=== PATIENT | male | born 1955 | race African-American/Black ===

== ENCOUNTER 2021-12-22 17:26 | Emergency (ER) | payer OTHER ==
[~2021-12-22] VITALS: Ht 175.3 cm; Wt 68.0 kg
[2021-12-22 20:45] VITALS: BP 143/87
[2021-12-22] MEDS ORDERED: KETOROLAC 60MG/2ML VIAL IM ONE (20:45)
[2021-12-22] MEDS ORDERED: HYDROCODONE/ACETAMINOPHEN 5/325MG TABLET PO ONE (20:45)
[2021-12-23] MEDS ORDERED: IBUP-2029 MT (00:41)
[2021-12-23] MEDS ORDERED: CYCL10TA21 MT (00:41)
[2021-12-23] MEDS ORDERED: ACET-3163 MT (00:41)
== END 2021-12-23 01:31 | disposition home or self-care (01) ==
LOC: ER 17:26
DX: M54.59 Other low back pain (principal); R10.32 Left lower quadrant pain; I11.0 Hypertensive heart disease with heart failure; I50.9 Heart failure, unspecified
CPT/HCPCS: 74176; 96372; 99284; J1885

== ENCOUNTER 2021-12-24 14:32 | Emergency (ER) | payer OTHER ==
[~2021-12-24] VITALS: Ht 170.2 cm; Wt 61.0 kg
[~2021-12-24 14:32] MED LIST: ACET-3163 MT; CYCL10TA21 MT; IBUP-2029 MT
[2021-12-24] MEDS ORDERED: CYCLOBENZAPRINE 10MG TABLET PO ONE (15:00)
[2021-12-24 15:36] LABS: BASOPHILS % 1.4 % (0.0-2.0); EOSINOPHILS % 1.9 % (0.0-5.0); HEMATOCRIT. 41.4 % (42.0-52.0); HEMOGLOBIN. 14.1 g/dL (14.0-18.0); LYMPHOCYTES % 32.8 % (20.0-50.0); MEAN PLATELET VOLUME 8.4 fl (7.4-10.4); MONOCYTES % 11.4 % (2.0-8.0); NEUTROPHILS % 52.5 % (40.0-76.0); PLATELET 303 x1000/uL (130-400); RED CELL DISTRIBUTION WIDTH 13.9 % (11.6-14.6)
[2021-12-24 15:47] LABS: CHLORIDE 107 mEq/L (98-107)
[2021-12-24 16:06] VITALS: BP 135/87
[2021-12-24] MEDS ORDERED: FUROSEMIDE 20MG TABLET PO ONE (16:30)
== END 2021-12-24 16:49 | disposition home or self-care (01) ==
LOC: ER 14:32
DX: I11.0 Hypertensive heart disease with heart failure (principal); I50.9 Heart failure, unspecified; M54.50 Low back pain, unspecified; Z91.14 Patient's other noncompliance with medication regimen
CPT/HCPCS: 36415; 71045; 80053; 83880; 84484; 85025; 93005; 99285

== ENCOUNTER 2022-03-05 17:14 | Emergency (ER) | payer OTHER ==
[~2022-03-05] VITALS: Ht 170.2 cm; Wt 82.0 kg
[2022-03-05 17:15] VITALS: BP 144/73
[2022-03-05] MEDS ORDERED: FUROSEMIDE 40MG/4ML VIAL IV ONE (17:45)
[2022-03-05] MEDS ORDERED: NITROGLYCERIN 0.4MG TABLET SL SL PRN (17:45)
[2022-03-05 18:54] LABS: BASOPHILS % 1.5 % (0.0-2.0); EOSINOPHILS % 1.4 % (0.0-5.0); HEMATOCRIT. 41.3 % (42.0-52.0); HEMOGLOBIN. 13.9 g/dL (14.0-18.0); LYMPHOCYTES % 20.4 % (20.0-50.0); MEAN CORPUSCULAR HEMOGLOBIN 31.2 pg (28.0-32.0); MEAN CORPUSCULAR VOLUME 92.3 fL (80.0-94.0); MONOCYTES % 11.2 % (2.0-8.0); NEUTROPHILS % 65.5 % (40.0-76.0); PLATELET 227 x1000/uL (130-400); RED BLOOD CELL COUNT 4.47 mill/uL (4.7-6.1); RED CELL DISTRIBUTION WIDTH 14.6 % (11.6-14.6)
[2022-03-05 19:00] LABS: CHLORIDE 104 mEq/L (98-107)
== END 2022-03-05 22:00 | disposition left against medical advice (07) ==
LOC: ER 17:14 → CANBEDREQ 03-07 08:36
DX: R06.02 Shortness of breath (principal); R05.9 Cough, unspecified; I11.0 Hypertensive heart disease with heart failure; I50.9 Heart failure, unspecified; E78.00 Pure hypercholesterolemia, unspecified
CPT/HCPCS: 36415; 71045; 80053; 83880; 84484; 85025; 93005; 99291

== ENCOUNTER 2022-04-28 17:12 | Inpatient (IN) | payer OTHER ==
[~2022-04-28] VITALS: Ht 157.5 cm; Wt 68.0 kg
[2022-04-28 18:16] LABS: BASOPHILS % 2.9 % (0.0-2.0); EOSINOPHILS % 2.3 % (0.0-5.0); HEMATOCRIT. 35.9 % (42.0-52.0); HEMOGLOBIN. 11.7 g/dL (14.0-18.0); LYMPHOCYTES % 31.8 % (20.0-50.0); MEAN CORPUSCULAR HEMOGLOBIN 30.5 pg (28.0-32.0); MEAN CORPUSCULAR VOLUME 93.1 fL (80.0-94.0); MEAN PLATELET VOLUME 8.5 fl (7.4-10.4); MONOCYTES % 11.8 % (2.0-8.0); NEUTROPHILS % 51.2 % (40.0-76.0); PLATELET 228 x1000/uL (130-400); RED BLOOD CELL COUNT 3.86 mill/uL (4.7-6.1); RED CELL DISTRIBUTION WIDTH 14.8 % (11.6-14.6)
[2022-04-28 18:20] LABS: CHLORIDE 109 mEq/L (98-107)
[2022-04-28 18:31] LABS: ETHANOL BLOOD < 10 mg/dL
[2022-04-28] MEDS ORDERED: ASPIRIN 325MG EC TABLET PO NR (18:56)
[2022-04-28] MEDS ORDERED: FUROSEMIDE 40MG/4ML VIAL IVP NR (19:00)
[2022-04-29 08:00] VITALS: BP 124/68
[2022-04-29 12:00] VITALS: BP 102/57
[2022-04-29] MEDS ORDERED: ONDANSETRON HCL 4MG/2ML INJ IV PRN (12:00)
[2022-04-29] MEDS ORDERED: IPRATROPIUM/ALBUTEROL 0.5-3(2.5)MG/3ML NEB HHN PRN (12:00)
[2022-04-29] MEDS ORDERED: ACETAMINOPHEN 325MG TABLET PO PRN (12:00)
[2022-04-29] MEDS ORDERED: ALBUTEROL (0.083%) 2.5MG/3ML NEB HHN PRN (12:30)
[2022-04-29] MEDS ORDERED: IPRATROPIUM BROMIDE (0.02%) 0.5MG/2.5ML NEB HHN PRN (12:30)
[2022-04-29] MEDS: FUROSEMIDE 40MG/4ML VIAL IVP SCH ×2 (13:15→18:06)
[2022-04-29] MEDS: LOSARTAN POTASSIUM 25 MG TABLET PO SCH (13:15)
[2022-04-29] MEDS: METHYLPREDNISOLONE SOD SUCC 40 MG/ML VIAL IV SCH ×2 (14:19→18:06)
[2022-04-29 16:39] LABS: *AMPHETAMINES SCREEN URINE NEGATIVE (NEGATIVE); *BARBITURATES SCREEN URINE NEGATIVE (NEGATIVE); *BENZODIAZEPINES SCREEN URINE NEGATIVE (NEGATIVE); *COCAINE SCREEN URINE PRESUMTIVE POSITIVE (NEGATIVE); CANNABINOID URINE SCREEN NEGATIVE (NEGATIVE); METHADONE URINE SCREEN NEGATIVE (NEGATIVE); OPIATES URINE SCREEN NEGATIVE (NEGATIVE); PHENCYCLIDINE URINE SCREEN NEGATIVE (NEGATIVE)
[2022-04-29 16:56] VITALS: BP 99/54
[2022-04-29] MEDS: ENOXAPARIN 40MG/0.4ML SYR SUBCUT SCH (18:06)
[2022-04-29 20:00] VITALS: BP 124/56
[2022-04-29] MEDS: CARVEDILOL 3.125 MG TABLET PO SCH (21:39)
[2022-04-30] VITALS: BP 112/62
[2022-04-30 04:00] VITALS: BP 134/69
[2022-04-30 06:06] LABS: CHLORIDE 102 mEq/L (98-107)
[2022-04-30 06:12] LABS: HEMATOCRIT. 38.4 % (42.0-52.0); HEMOGLOBIN. 12.9 g/dL (14.0-18.0); MEAN CORPUSCULAR VOLUME 92.3 fL (80.0-94.0); MEAN PLATELET VOLUME 9.6 fl (7.4-10.4); PLATELET 234 x1000/uL (130-400); RED BLOOD CELL COUNT 4.16 mill/uL (4.7-6.1); RED CELL DISTRIBUTION WIDTH 14.1 % (11.6-14.6)
[2022-04-30] MEDS: FUROSEMIDE 40MG/4ML VIAL IVP SCH ×2 (06:13→17:47)
[2022-04-30 06:17] LABS: CREATINE KINASE 122 IU/L (39-308)
[2022-04-30 08:00] VITALS: BP 102/62
[2022-04-30] MEDS: LOSARTAN POTASSIUM 25 MG TABLET PO SCH (09:00)
[2022-04-30] MEDS: CARVEDILOL 3.125 MG TABLET PO SCH ×2 (09:00→21:00)
[2022-04-30] MEDS: METHYLPREDNISOLONE SOD SUCC 40 MG/ML VIAL IV SCH ×2 (09:00→17:47)
[2022-04-30 09:37] LABS: PLATELET ESTIMATE NORMAL
[2022-04-30 12:00] VITALS: BP 99/54
[2022-04-30 16:00] VITALS: BP 101/56
[2022-04-30] MEDS: ENOXAPARIN 40MG/0.4ML SYR SUBCUT SCH (17:47)
[2022-04-30 20:00] VITALS: BP 109/61
[2022-05-01] VITALS (7 sets, daily range): BP systolic 96–131; BP diastolic 57–74
[2022-05-01] MEDS: FUROSEMIDE 40MG/4ML VIAL IVP SCH ×2 (07:22→17:31)
[2022-05-01] MEDS: CARVEDILOL 3.125 MG TABLET PO SCH ×2 (09:00→20:34)
[2022-05-01] MEDS: LOSARTAN POTASSIUM 25 MG TABLET PO SCH (09:00)
[2022-05-01] MEDS: METHYLPREDNISOLONE SOD SUCC 40 MG/ML VIAL IV SCH ×2 (09:33→17:31)
[2022-05-01] MEDS: PANTOPRAZOLE SODIUM 40 MG/VIAL IV SCH (12:59)
[2022-05-01] MEDS ORDERED: LOSA25TA3 PO (14:25)
[2022-05-01] MEDS ORDERED: COR3 PO (14:25)
[2022-05-01] MEDS ORDERED: BUDE6HFA INH (14:25)
[2022-05-01] MEDS ORDERED: ALBU2.5V13 HHN (14:25)
[2022-05-01] MEDS ORDERED: FURO-151 MT (14:25)
[2022-05-01] MEDS ORDERED: MED4 MT (14:25)
[2022-05-01 15:28] LABS: HEMATOCRIT. 39.8 % (42.0-52.0); HEMOGLOBIN. 13.3 g/dL (14.0-18.0); MEAN CORPUSCULAR HEMOGLOBIN 30.8 pg (28.0-32.0); MEAN CORPUSCULAR VOLUME 92.4 fL (80.0-94.0); PLATELET 249 x1000/uL (130-400); RED BLOOD CELL COUNT 4.31 mill/uL (4.7-6.1); RED CELL DISTRIBUTION WIDTH 14.4 % (11.6-14.6)
[2022-05-01 15:45] LABS: CHLORIDE 102 mEq/L (98-107)
[2022-05-01] MEDS: ENOXAPARIN 40MG/0.4ML SYR SUBCUT SCH (17:31)
[2022-05-01 18:03] LABS: PLATELET ESTIMATE NORMAL
[2022-05-02] VITALS: BP 108/69
[2022-05-02 04:00] VITALS: BP 122/77
[2022-05-02] MEDS: FUROSEMIDE 40MG/4ML VIAL IVP SCH (06:15)
[2022-05-02 08:00] VITALS: BP 100/44
[2022-05-02 08:17] LABS: HEMATOCRIT. 37.9 % (42.0-52.0); HEMOGLOBIN. 12.7 g/dL (14.0-18.0); MEAN CORPUSCULAR HEMOGLOBIN 31.1 pg (28.0-32.0); MEAN CORPUSCULAR VOLUME 92.8 fL (80.0-94.0); MEAN PLATELET VOLUME 9.7 fl (7.4-10.4); PLATELET 222 x1000/uL (130-400); RED BLOOD CELL COUNT 4.09 mill/uL (4.7-6.1); RED CELL DISTRIBUTION WIDTH 14.2 % (11.6-14.6)
[2022-05-02] MEDS: PANTOPRAZOLE SODIUM 40 MG/VIAL IV SCH (08:49)
[2022-05-02] MEDS: METHYLPREDNISOLONE SOD SUCC 40 MG/ML VIAL IV SCH (08:49)
[2022-05-02] MEDS: CARVEDILOL 3.125 MG TABLET PO SCH (08:50)
[2022-05-02] MEDS: LOSARTAN POTASSIUM 25 MG TABLET PO SCH (08:50)
[2022-05-02 08:55] LABS: PLATELET ESTIMATE NORMAL
[2022-05-02 09:20] LABS: CHLORIDE 101 mEq/L (98-107)
[2022-05-02 12:00] VITALS: BP 131/74
[2022-05-03] MEDS ORDERED: FAMOTIDINE 20MG TABLET PO SCH (09:00)
== END 2022-05-02 14:45 | disposition home or self-care (01) | DRG 291 ==
LOC: ER 17:12 → MICUSO 19:46 → EDBEDREQ 19:59 → EDBEDREQTM 19:59 → 7WST 04-29 06:07
PROVIDERS: ADMIT Internal Medicine; ATTEND Internal Medicine
PROC: 5A09357 Assistance with Respiratory Ventilation, Less than 24 Consecutive Hours, Continuous Positive Airway Pressure (ICD-10-PCS; principal; 2022-04-28)
DX: I11.0 Hypertensive heart disease with heart failure (principal); I50.23 Acute on chronic systolic (congestive) heart failure; J96.21 Acute and chronic respiratory failure with hypoxia; J44.1 Chronic obstructive pulmonary disease with (acute) exacerbation; I42.0 Dilated cardiomyopathy; E78.00 Pure hypercholesterolemia, unspecified; E78.5 Hyperlipidemia, unspecified; I25.10 Atherosclerotic heart disease of native coronary artery without angina pectoris; F14.10 Cocaine abuse, uncomplicated; F17.200 Nicotine dependence, unspecified, uncomplicated; Z79.899 Other long term (current) drug therapy
CPT/HCPCS: 36415; 71045; 80048; 80053; 80061; 80305; 80320; 82550; 82553; 83735; 83880; 84484; 85025; 86850; 86900; 93005; 93306; 94660; 99285; C9113; J1650; J1940; J2920; G0480

== ENCOUNTER 2023-04-05 15:09 | Emergency (ER) | payer MEDICARE, OTHER ==
[~2023-04-05] VITALS: Ht 167.6 cm; Wt 64.0 kg
[~2023-04-05 15:09] MED LIST changes: -ACET-3163 MT; +COR3 MT; -CYCL10TA21 MT; -IBUP-2029 MT; +LOSA-412 MT; +SPIR25TA6 MT
[2023-04-05 15:17] VITALS: BP 121/82; PULSE 64; RESP 16; TEMP 98.6; O2SAT 98
[2023-04-05 17:20] LABS: BASOPHILS % 2.4 % (0.0-2.0); EOSINOPHILS % 2.3 % (0.0-5.0); HEMATOCRIT. 39.3 % (42.0-52.0); HEMOGLOBIN. 12.8 g/dL (14.0-18.0); LYMPHOCYTES % 26.9 % (20.0-50.0); MEAN CORPUSCULAR HEMOGLOBIN 30.8 pg (28.0-32.0); MEAN CORPUSCULAR HGB CONC 32.6 g/dL (31.0-37.0); MEAN CORPUSCULAR VOLUME 94.5 fL (80.0-94.0); MEAN PLATELET VOLUME 8.7 fl (7.4-10.4); NEUTROPHILS % 57.4 % (40.0-76.0); PLATELET 239 x1000/uL (130-400); RED BLOOD CELL COUNT 4.15 mill/uL (4.7-6.1); RED CELL DISTRIBUTION WIDTH 15.6 % (11.6-14.6); WHITE BLOOD COUNT 4.8 x1000/uL (4.5-11.0)
[2023-04-05 17:38] LABS: ALANINE AMINOTRANSFERASE 21 IU/L (10-49); ASPARTATE AMINOTRANSFERASE 38 IU/L (<34); BILIRUBIN TOTAL 0.7 mg/dL (0.1-1.0); CALCIUM 9.3 mg/dL (8.7-10.4); CARBON DIOXIDE 30 mEq/L (21-32); CHLORIDE 106 mEq/L (98-107); CREATININE 0.8 mg/dL (0.6-1.3); GLUCOSE 130 mg/dL (70-105); POTASSIUM 4.6 mEq/L (3.5-5.1); PROTEIN TOTAL 6.8 g/dL (6.0-8.3); SODIUM 139 mEq/L (136-145); UREA NITROGEN BLOOD 13 mg/dL (9-23)
== END 2023-04-05 18:35 | disposition home or self-care (01) ==
LOC: ER 15:09
DX: R10.9 Unspecified abdominal pain (principal); B34.9 Viral infection, unspecified; I11.0 Hypertensive heart disease with heart failure; I50.9 Heart failure, unspecified; E78.00 Pure hypercholesterolemia, unspecified
CPT/HCPCS: 36415; 71045; 74176; 80053; 85025; 99284